=== PATIENT | female | born 1935 | race Two or more races ===

== ENCOUNTER 2017-02-15 20:55 | Observation (INO) ==
[2017-02-15] MEDS ORDERED: SODIUM CHLORIDE 0.9% 500 ML IV STA (21:19)
[2017-02-15 21:30] LABS: Basophils % 0.1 % (0.0-0.8); Eosinophils # 0.1 10*3/uL (0.0-0.87); Hematocrit 39.3 VOL% (35.7-47.0); Hemoglobin 13.6 GM/DL (12.0-16.0); Immature Granulocytes % 0.3 %; Immature Granulocytes Absolute 0.02 #; Lymphocytes # 2.7 10*3/uL (1.4-4.0); Lymphocytes % 39.6 % (21.3-54.2); Mean Corpuscular HGB Conc 34.6 GM/DL (32-36); Mean Corpuscular Hemoglobin 30 PG (27-34); Mean Corpuscular Volume 87.5 FL (87-102); Mean Platelet Volume 10.2 FL (9.6-12.0); Monocytes # 0.6 10*3/uL (0.11-0.8); Monocytes % 8.2 % (1.7-12.7); Neutrophils # 3.5 10*3/uL (1.4-7.4); Neutrophils % 50.8 % (38.7-73.9); Platelet Count 243 T/CUMM (130-400); Red Blood Count 4.49 MC/CUMM (3.8-5.5); White Blood Count 6.9 T/CUMM (4-12)
[2017-02-15 21:52] LABS: Alanine Aminotransferase 24 U/L (13-56); Albumin 3.6 G/DL (3.4-5.0); Alkaline Phosphatase 108 U/L (45-117); Aspartate Amino Transferase 17 U/L (0-37); Blood Urea Nitrogen 19 MG/DL (7-18); Calcium 9.3 MG/DL (8.5-10.1); Glucose 325 MG/DL (74-106); Magnesium 1.7 MG/DL (1.8-2.4); Sodium 136 MMOL/L (136-145); Total Protein 7.9 G/DL (6.4-8.3); Troponin I Only 0.025 NG/ML (0.00-0.045)
[2017-02-15 22:12] LABS: Ammonia 21 UMOL/L (11-32)
[2017-02-15 22:57] LABS: Apearance,Urine CLEAR (Clear); Bilirubin,Urine Negative (Negative); Blood, Urine Negative (Negative); Glucose,Urine (UA) >=500 mg/dL (Negative); Ketones,Urine Negative (Negative); Nitrite,Urine Negative (Negative); Protein,Urine Negative; RBC,Urine 2 /HPF (0-4); Squamous Epithelial Cell,Urine Occasional /HPF (0-10); Urine Color Straw (Yellow); Urine Specific Gravity 1.011 (1.001-1.035); Urine Urobilinogen < 2.0 EU/DL (0.2-1.0); WBC,Urine 4 /HPF (0-6)
[2017-02-15 23:01] LABS: Barbiturates Screen,Urine Negative (Negative); Benzodiazepines Screen,Urine Negative (Negative); Cannabinoid Screen,Urine Negative (Negative); Opiate Screen,Urine Negative (Negative); Phencyclidine Screen,Urine Negative (Negative)
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
[2017-02-16] MEDS ORDERED: ONDANSETRON 4 MG/2 ML VIAL IV PRN (00:47)
[2017-02-16] MEDS ORDERED: GLUCAGON 1 MG VIAL IM PRN (00:47)
[2017-02-16] MEDS ORDERED: DEXTROSE 50% 25 GM/50 ML SYRINGE IV PRN (00:47)
[2017-02-16] MEDS ORDERED: ACETAMINOPHEN 325 MG TABLET PO PRN (00:47)
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
[2017-02-16] MEDS: SODIUM CHLORIDE 0.9% 1,000 ML IV SCH ×3 (01:07→14:06)
[2017-02-16] MEDS: MAGNESIUM OXIDE 400 MG TABLET PO SCH ×3 (01:07→20:29)
[2017-02-16 06:03] LABS: Basophils % 0.4 % (0.0-0.8); Eosinophils # 0.1 10*3/uL (0.0-0.87); Eosinophils % 2.2 % (0.00-10.9); Hematocrit 35.5 VOL% (35.7-47.0); Hemoglobin 11.9 GM/DL (12.0-16.0); Immature Granulocytes % 0.4 %; Immature Granulocytes Absolute 0.02 #; Lymphocytes # 2.1 10*3/uL (1.4-4.0); Lymphocytes % 40.1 % (21.3-54.2); Mean Corpuscular HGB Conc 33.5 GM/DL (32-36); Mean Corpuscular Hemoglobin 30 PG (27-34); Mean Corpuscular Volume 88.1 FL (87-102); Monocytes # 0.6 10*3/uL (0.11-0.8); Monocytes % 10.8 % (1.7-12.7); Neutrophils # 2.4 10*3/uL (1.4-7.4); Neutrophils % 46.1 % (38.7-73.9); Platelet Count 211 T/CUMM (130-400); Red Blood Count 4.03 MC/CUMM (3.8-5.5); Red Cell Distribution Width 12.9 % (9.3-17.3); White Blood Count 5.1 T/CUMM (4-12)
--- NOTE | 2017-02-16 06:12 | CT Report ---
C CT of the head without contrast. Indication: Altered mental status. No prior studies. There is a preliminary report from [facility]. There is calcific plaque present within the intracranial internal carotid arteries. There has been a previous right frontotemporal craniotomy. The included paranasal sinuses and the mastoid air cells are clear. Deep to the craniotomy defect, there is a small area of encephalomalacia. Within the white matter of both cerebral hemispheres, there are areas of low density, consistent with chronic microvascular ischemia. There is no mass effect, midline shift, or area of hemorrhage. No definite cortical infarcts are seen. Impression: No acute intracranial process is identified. There are changes of chronic microvascular ischemia and encephalomalacia associated with the craniotomy defect in the right frontotemporal region. The CT exam was performed using one or more of the following dose reduction techniques: Automated exposure control, adjustment of the mA and/or kV according to patient size, or use of iterative reconstruction technique. PROCEDURE INTERPRETED AT [facility] [place] DEPARTMENT OF RADIOLOGY Final Report Signed by: Dr. Lola Morejon
[2017-02-16 06:37] LABS: Albumin 2.9 G/DL (3.4-5.0); Calcium 8.5 MG/DL (8.5-10.1); Magnesium 1.8 MG/DL (1.8-2.4); Osmolality,Calculated 290.1 MOS/KG (273-304); Total Protein 6.1 G/DL (6.4-8.3)
--- NOTE | 2017-02-16 07:06 | XRay Report ---
Single view the chest. Indication: Altered mental status. No comparison. The heart is normal in size. There is uncoiling of the thoracic aorta which often indicates chronic hypertension. There is calcific plaque present within the aortic knob. A left-sided Chemo-Port is in place with its distal tip at the junction of the right subclavian and SVC. The pulmonary vasculature is normal. There is no consolidation, pneumothorax, or pleural effusion. The osseous structures are diffusely demineralized. Degenerative changes are present within the spinal column and shoulders. Impression: No acute abnormality. PROCEDURE INTERPRETED AT [facility] DEPARTMENT OF RADIOLOGY Final Report Signed by: Dr. Lola Morejon
--- NOTE | 2017-02-16 08:12 | EKG Report ---
Stationary ECG Study [facility] ER Test Date: 02/15/2017 10:16:09 PM Pat Name: JAQUELINE GUZMAN Department: Room: 423 Gender: F Heating And Ventilating Drafter: : 1935 Requested by: Piyush Kaplan Order Number: [id number] Reading MD: ROBERT RUSH Intervals [place] Rate: 61 P: 60 IA: 170 QRS: 48 QRSD: 87 T: 54 QT: 489 QTc: 491 Interpretive Statements SINUS RHYTHM PROLONGED QT INTERVAL Electronically Signed On 02-16-17 12:07:40 CDT by ROBERT RUSH [email or web address]
[2017-02-16] MEDS: LOSARTAN 50 MG TABLET PO SCH (08:49)
[2017-02-16] MEDS: metFORMIN 500 MG TABLET PO SCH ×2 (08:49→20:29)
[2017-02-16] MEDS: sitaGLIPtin 100 MG TABLET PO SCH (08:49)
[2017-02-16] MEDS: INSULIN REGULAR 100 UNIT/ML SUBCUT SCH ×4 (08:49→20:31)
--- NOTE | 2017-02-16 14:55 | Hospitalist Progress Note ---
Assessment and Plan (1) Dementia arising in the senium and presenium Status: Acute Assessment and plan: Impression: 1. Dementia Plan: Await placement. Current Visit: Yes Hospitalist: Subjective Interval history: Follow-up dementia. The patient may be a placement issue. She was refused by her geriatric psychiatric unit because there is no one there that speaks Ecuadorean. When she was evaluated by [facility], she became distressed using the figure clerk on the telephone. The daughter is coming to see the patient this evening, and try to facilitate transfer to [facility]. If this can be done, we will have to discharge the patient home. Exam - Constitutional Vitals: Period Temp Pulse Resp BP Sys/Coyle Pulse Ox Last 24 Hr 96.6 F-100.1 F 59-97 16-20 111-199/59-92 94-97 Vital signs are noted above. Heart is regular with no murmur. Lungs are clear with no rales or wheezes. Abdomen is soft. I was not able to communicate with the patient other than to greet her. Results - Labs CBC & BMP: 02/16/17 05:36 02/16/17 05:36 Lab Results: I have reviewed the past 24 hour labs Quality Measures - VTE Contraindication to Pharmacological VTE Prophylaxis: Clinical assessment deems Pt at low risk, no prophalaxis needed
[2017-02-16] MEDS ORDERED: ATORVASTATIN 10 MG TABLET PO SCH (21:00)
[2017-02-17] MEDS: SODIUM CHLORIDE 0.9% 1,000 ML IV SCH (03:01)
--- NOTE | 2017-02-17 08:24 | Discharge Summary ---
Hospital Course - Hospital Course Hospital Course: Discharge diagnosis: 1. Dementia The patient presented to the hospital for evaluation of some mental status changes. She was evaluated by the geriatric psychiatric unit here at [place]. She was declined due to a language barrier. She was seen by [facility], and they decided that she was not psychotic, and did not need geriatric psychiatric hospitalization. Therefore, she is being discharged home. Medication reconciliation has been performed. Regular diet. Activity as tolerated. Follow-up with local physician. This note was completed using [employer] voice recognition software. There may be representative personal service errors as a result. Diagnosis - Discharge Diagnosis (1) Dementia arising in the senium and presenium Status: Acute Discharge Plan - Discharge Data Disposition: Disch To Home/Self Care Condition at Discharge: Stable Discharge Diet: advance to your usual diet Activity: resume usual activities as tolerated Hygiene: no restrictions Weight Bearing at Discharge: full weight bearing Driving: not until seen by doctor - Discharge Medications Continue Atorvastatin [Lipitor] 10 mg PO BEDTIME Sitagliptin Phos/Metformin HCl [Janumet 50-1,000 mg Tablet] 1 each PO BID Losartan [Cozaar] 100 mg PO DAILY - Follow Up or Referral - Forms/Instructions Exam - Constitutional Vitals: Period Temp Pulse Resp BP Sys/Coyle Pulse Ox Last 24 Hr 96.9 F-98.4 F 62-77 16-22 130-195/60-92 18-96 Vital signs are noted above. Heart is regular with no new murmur. Chest is clear. She is pleasant, but I cannot really communicate with her. Discharge Results Labs on day of discharge: Labs from last 24 hours 02/17/17 02/16/17 02/16/17 07:56 19:30 15:53 POC Glucose 229 H 140 H 160 H 02/16/17 12:28 POC Glucose 225 H DS: Provider Date of admission: 02/15/17 23:45 Primary care physician: . No PCP Attending physician on admission: Iker Leal MD Consults: 02/16/17 00:56 Consult to Case Mgmt/Social Srvs [CONS] Routine Reason for Case Mgmt/Social Srvs: Other Consult Comment: Geripsych placement Discharging clinician: Carlito Florentino MD Expected date of discharge: 02/17/17
[2017-02-17] MEDS: LOSARTAN 50 MG TABLET PO SCH (08:48)
[2017-02-17] MEDS: sitaGLIPtin 100 MG TABLET PO SCH (08:48)
[2017-02-17] MEDS: MAGNESIUM OXIDE 400 MG TABLET PO SCH (08:48)
[2017-02-17] MEDS: INSULIN REGULAR 100 UNIT/ML SUBCUT SCH ×2 (08:48→13:01)
[2017-02-17] MEDS: metFORMIN 500 MG TABLET PO SCH (08:48)
[2017-02-17 16:35] VITALS: BP 164/72
== END 2017-02-17 16:54 | disposition home or self-care (01) ==
LOC: N.ED 20:55 → N.EDINP 20:55 → SUATTDRO 23:45 → N.4E 02-16 00:26
PROVIDERS: ADMIT Family Medicine; ATTEND Internal Medicine Geriatric Medicine

== ENCOUNTER 2017-03-15 05:57 | Inpatient (IN) ==
--- NOTE | 2017-03-11 09:44 | XRay Report ---
XR chest 2V Indication: Respiratory preoperative evaluation Comparison: 15 February 2017 Findings: The heart and mediastinum are stable in size and configuration. Left subclavian Port-A-Cath is unchanged in position. The pulmonary vascularity is normal in caliber. Lung volumes are increased with prominent bronchial markings. No lung infiltrates, effusions, pneumothorax or other abnormality is demonstrated. Impression: Chronic lung changes. No acute process or significant change. PROCEDURE INTERPRETED AT [facility] DEPARTMENT OF RADIOLOGY Final Report Signed by: Dr. Nadir Roberts
--- NOTE | 2017-03-11 09:50 | EKG Report ---
Stationary ECG Study [facility] Test Date: 03/11/2017 9:51:09 AM Pat Name: JAQUELINE GUZMAN Department: Room: Gender: F Engagement Liaison: MARTIN MUNGUIA 03-15-17 : 1935 Requested by: Carlos Whitney Order Number: [id number] Ami MD: RYLEE GOMEZ Intervals [place] Rate: 69 P: 88 PA: 163 QRS: 63 QRSD: 97 T: 75 QT: 421 QTc: 440 Interpretive Statements SINUS RHYTHM Electronically Signed On 03-11-17 17:04:45 CDT by RYLEE GOMEZ [id number]
[2017-03-11 10:25] LABS: Basophils % 0.3 % (0.0-0.8); Eosinophils # 0.1 10*3/uL (0.0-0.87); Eosinophils % 1.7 % (0.00-10.9); Hematocrit 33.5 VOL% (35.7-47.0); Hemoglobin 11.3 GM/DL (12.0-16.0); Immature Granulocytes % 0.4 %; Immature Granulocytes Absolute 0.03 #; Lymphocytes # 1.6 10*3/uL (1.4-4.0); Lymphocytes % 22.7 % (21.3-54.2); Mean Corpuscular HGB Conc 33.7 GM/DL (32-36); Mean Corpuscular Hemoglobin 30 PG (27-34); Mean Corpuscular Volume 88.6 FL (87-102); Monocytes # 0.6 10*3/uL (0.11-0.8); Monocytes % 8.3 % (1.7-12.7); Neutrophils # 4.8 10*3/uL (1.4-7.4); Neutrophils % 66.6 % (38.7-73.9); Platelet Count 359 T/CUMM (130-400); Red Blood Count 3.78 MC/CUMM (3.8-5.5); Red Cell Distribution Width 12.9 % (9.3-17.3); White Blood Count 7.2 T/CUMM (4-12)
[2017-03-11 10:52] LABS: Apearance,Urine Slightly Hazy (Clear); Bilirubin,Urine Negative (Negative); Blood, Urine Negative (Negative); Glucose,Urine (UA) >=500 mg/dL (Negative); Ketones,Urine Negative (Negative); Mucus,Urine Occasional /LPF (Occasional); Nitrite,Urine Negative (Negative); Protein,Urine Negative; RBC,Urine 7 /HPF (0-4); Squamous Epithelial Cell,Urine Occasional /HPF (0-10); Urine Color Yellow (Yellow); Urine Specific Gravity 1.037 (1.001-1.035); WBC,Urine 16 /HPF (0-6)
[2017-03-11 11:00] LABS: Calcium 9.4 MG/DL (8.5-10.1); Osmolality,Calculated 292.7 MOS/KG (273-304)
--- NOTE | 2017-03-15 06:43 | History and Physical Update ---
History and Physical Update - History and Physical H&P was reviewed, the patient examined and there: are no changes in the patients condition since last H&P was completed.
[2017-03-15] MEDS ORDERED: INSULIN REGULAR 100 UNIT/ML SUBCUT ONE (06:46)
[2017-03-15] MEDS ORDERED: ceFAZolin 1,000 MG VIAL ONE (07:10)
[2017-03-15] MEDS ORDERED: SODIUM CHLORIDE 0.9% 100 ML IV ONE (07:10)
[2017-03-15] MEDS ORDERED: INSULIN REGULAR 100 UNIT/ML ONE (07:10)
[2017-03-15] MEDS ORDERED: LACTATED RINGERS 1,000 ML IV SCH ×2 (07:30→09:30)
[2017-03-15] MEDS ORDERED: GENTAMICIN 80 MG/2 ML VIAL ONE (08:42)
[2017-03-15] MEDS ORDERED: PROPOFOL 200 MG/20 ML VIAL IV ONE (09:15)
[2017-03-15] MEDS ORDERED: LIDOCAINE 2% 5 ML VIAL ONE (09:15)
[2017-03-15] MEDS ORDERED: LABETALOL 100 MG/20 ML VIAL IV ONE (09:15)
[2017-03-15] MEDS ORDERED: ONDANSETRON 4 MG/2 ML VIAL ONE (09:15)
[2017-03-15] MEDS ORDERED: MAGNESIUM HYDROXIDE SUSP 30 ML UDCUP PO PRN (09:29)
[2017-03-15] MEDS ORDERED: ACETAMINOPHEN 325 MG TABLET PO PRN (09:31)
[2017-03-15] MEDS ORDERED: oxyCODONE IR 5 MG TABLET PO PRN (09:31)
[2017-03-15] MEDS ORDERED: ONDANSETRON 4 MG/2 ML VIAL IV PRN (09:31)
[2017-03-15] MEDS ORDERED: MORPHINE 2 MG/1 ML SYRINGE IV PRN (09:31)
[2017-03-15] MEDS ORDERED: GLUCAGON 1 MG VIAL IM PRN (09:33)
[2017-03-15] MEDS ORDERED: DEXTROSE 50% 25 GM/50 ML SYRINGE IV PRN (09:33)
--- NOTE | 2017-03-15 10:38 | Operative Note ---
Date of procedure: 03/15/17 Procedure: DIAGNOSIS: Left displaced patella fracture PROCEDURE: Open reduction and fixation left displaced patella fracture SURGEON: Blaine ANESTHESIA: General with postoperative femoral nerve block PROCEDURE and FINDINGS: After adequate anesthesia was induced, her left lower extremities prepped and draped in usual sterile fashion. The limb was examined with Esmarch. Tourniquet was inflated 300 mmHg. Tourniquet was released at 12 minutes because of a venous tourniquet. Longitudinal anterior knee incision was made. Full-thickness flaps were elevated over the fracture. Organizing hematoma was removed. The patella was reduced and secured with a reduction forcep. 2 0.0625 K wires were introduced. An 18-gauge wire tension band was placed. Guide pins were cut and bent. An additional #2 Orthocord stitch was placed as a tension band. The knee was taken through range of motion and was stable to 90. 0 Vicryl lvainp-nl-thlvs sutures were used deep. Subcutaneous tissue was closed with 3-0 Vicryl interrupted, buried sutures. Skin was closed with a 4-0 Monocryl subcuticular stitch. Mastisol and Steri-Strips were applied. A sterile dressing and long leg cylinder splint was applied. Image intensification was used to multiple planes throughout the procedure. Surgeon / Physician: Carlos Valladares Jr. Results - Labs CBC & BMP: 03/11/17 10:18 03/11/17 10:18 Discharge Plan - Discharge Medications No Action Atorvastatin [Lipitor] 10 mg PO BEDTIME Sitagliptin Phos/Metformin HCl [Janumet 50-1,000 mg Tablet] 1 each PO BID Losartan [Cozaar] 100 mg PO DAILY - Follow Up or Referral - Forms/Instructions
[2017-03-15] MEDS ORDERED: ROPIVACAINE 0.5% 30 ML VIAL ONE (10:42)
[2017-03-15] MEDS ORDERED: fentaNYL 100 MCG/2 ML VIAL ONE (11:16)
[2017-03-15] MEDS ORDERED: SEVOFLURANE 1 UNIT/15 MINUTE INH ONE (11:16)
--- NOTE | 2017-03-15 11:46 | XRay Report ---
XR knee 2V LT Clinical Information: ORIF LT PATELLA Comparison: Prior radiographs 03/02/2017 Total fluoroscopy time 13.[address] Gonzalez Findings: Intraoperative fluoroscopic images demonstrate open reduction and internal fixation of the patellar fracture. Fracture fragments are in significantly improved position/alignment. Overlying soft tissue swelling is significantly decreased. Impression: Intraoperative fluoroscopy as detailed above. PROCEDURE INTERPRETED AT [facility] DEPARTMENT OF RADIOLOGY Final Report Signed by: Dave Preciado
[2017-03-15] MEDS: INSULIN LISPRO 100 UNIT/ML SUBCUT SCH ×3 (11:58→21:55)
[2017-03-15] MEDS: KETOROLAC 15 MG/1 ML VIAL IV SCH ×2 (11:58→17:36)
--- NOTE | 2017-03-15 12:55 | Anesthesia Post-Op ---
Anesthesia Post OP - Post Ansesthetic Evaluation Patient seen in post op: Yes Resp: within normal limits CV: within normal limits Mental: other (no change from preop) Temp: within normal limits Pxtv-Gm-[id number]: within normal limits Nausea and Vomiting: within normal limits Pain: within normal limits
[2017-03-15] MEDS: ACETAMINOPHEN 500 MG TABLET PO SCH ×2 (13:45→20:15)
--- NOTE | 2017-03-15 15:14 | Orthopedic Progress Note ---
Orthopedics - Subjective Interval history: No complaints postop. Splint is clean, dry and intact. Left lower extremity is neurovascularly unchanged. Plan: Continue with orders. Mrs Anand's daughter would like swing bed placement. Exam - Constitutional Vitals: Period Temp Pulse Resp BP Sys/Coyle Pulse Ox Last 24 Hr 97.5 F-97.5 F 63-86 18-20 150-219/71-98 94-100 Results - Labs CBC & BMP: 03/11/17 10:18 03/11/17 10:18
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
[2017-03-15] MEDS ORDERED: metFORMIN 500 MG TABLET PO SCH (21:00)
[2017-03-15] MEDS ORDERED: sitaGLIPtin 25 MG TABLET PO SCH (21:00)
[2017-03-15] MEDS: ATORVASTATIN 10 MG TABLET PO SCH (21:55)
[2017-03-15] MEDS: sitaGLIPtin 25 MG TABLET PO SCH (21:55)
[2017-03-15] MEDS: CIPROFLOXACIN 250 MG TABLET PO SCH (21:55)
[2017-03-15] MEDS: metFORMIN 500 MG TABLET PO SCH (21:55)
[2017-03-16] MEDS: KETOROLAC 15 MG/1 ML VIAL IV SCH (00:45)
[2017-03-16] MEDS ORDERED: KETOROLAC 30 MG/1 ML VIAL ONE (01:19)
[2017-03-16] MEDS: ACETAMINOPHEN 500 MG TABLET PO SCH ×2 (01:25→09:06)
[2017-03-16 04:02] LABS: Basophils % 0.2 % (0.0-0.8); Eosinophils # 0.1 10*3/uL (0.0-0.87); Eosinophils % 2.4 % (0.00-10.9); Hematocrit 27.7 VOL% (35.7-47.0); Hemoglobin 9.3 GM/DL (12.0-16.0); Immature Granulocytes % 0.3 %; Immature Granulocytes Absolute 0.02 #; Lymphocytes # 1.7 10*3/uL (1.4-4.0); Lymphocytes % 28.6 % (21.3-54.2); Mean Corpuscular HGB Conc 33.6 GM/DL (32-36); Mean Corpuscular Hemoglobin 30 PG (27-34); Mean Corpuscular Volume 89.9 FL (87-102); Mean Platelet Volume 10.1 FL (9.6-12.0); Monocytes # 0.5 10*3/uL (0.11-0.8); Monocytes % 8.9 % (1.7-12.7); Neutrophils # 3.5 10*3/uL (1.4-7.4); Neutrophils % 59.6 % (38.7-73.9); Platelet Count 263 T/CUMM (130-400); Red Blood Count 3.08 MC/CUMM (3.8-5.5); White Blood Count 5.9 T/CUMM (4-12)
[2017-03-16 04:33] LABS: Calcium 8.1 MG/DL (8.5-10.1); Osmolality,Calculated 288.8 MOS/KG (273-304); Potassium 3.7 MMOL/L (3.5-5.1)
[2017-03-16] MEDS: INSULIN LISPRO 100 UNIT/ML SUBCUT SCH ×4 (07:40→23:09)
--- NOTE | 2017-03-16 08:07 | Orthopedic Progress Note ---
Orthopedics - Subjective Interval history: Alert, comfortable. Her left knee only hurts her a little. Left lower extremity splint is clean, dry and intact. Her left lower extremity neurovascularly unchanged. Plan: Mobilize with physical therapy. Plan swing bed placement. Exam - Constitutional Vitals: Period Temp Pulse Resp BP Sys/Coyle Pulse Ox Last 24 Hr 97.1 F-98.5 F 58-86 15-20 117-219/52-98 93-100 Results - Labs CBC & BMP: 03/16/17 03:12 03/16/17 03:12
[2017-03-16] MEDS: CIPROFLOXACIN 250 MG TABLET PO SCH ×2 (09:06→22:19)
[2017-03-16] MEDS: LOSARTAN 50 MG TABLET PO SCH (09:06)
[2017-03-16] MEDS: metFORMIN 500 MG TABLET PO SCH ×2 (09:07→22:19)
[2017-03-16] MEDS: sitaGLIPtin 25 MG TABLET PO SCH ×2 (09:07→22:20)
[2017-03-16] MEDS: oxyCODONE IR 5 MG TABLET PO PRN ×2 (11:43→16:44)
--- NOTE | 2017-03-16 13:06 | Hospitalist Progress Note ---
Assessment and Plan - Time spent with patient Time spent with patient: Less than 30 minutes (1) Fall Status: Acute Assessment and plan: 81-year-old [place] African female admitted by Dr. Valladares on 03/15/2017 for ORIF of left patellar due to displaced fracture on 03/02/2017. Hospitalists have been consulted for medical management. Patient speaks very little Irish so communication is difficult. Patient has a history of diabetes, hypertension, and hyperlipidemia and her home medications have been restarted. She has also been placed on sliding scale insulin and we will monitor her blood pressures and blood sugars. Patient does have a recent admission for psychoses due to dementia so we will continue to monitor her mental status. She seems to be doing well today. Her pain is well controlled on IV and p.o. pain medication. Social work has been consulted for swing bed placement. We will continue to follow during her hospital stay. Dr. Zaidi will see and examine patient and further recommendations to follow. 03/16/2017 patient is doing well today status post left ORIF of her patella. She is afebrile vital signs are stable. Her H&H and blood sugars are all okay. Her pain is well controlled on current pain medications. She has been pleasant and has been doing her best to communicate with the nursing staff. Patient should be going to swing bed in the next day or so. Dr. Zaidi will see and examine patient and further recommendations to follow. Current Visit: Yes (2) Left patella fracture Status: Acute Current Visit: Yes (3) Diabetes Status: Acute Current Visit: Yes (4) Hypertension Status: Acute Current Visit: Yes (5) Hyperlipidemia Status: Acute Current Visit: Yes (6) History of encephalopathy Status: Acute Current Visit: Yes (7) History of craniotomy for brain mass Status: Acute Current Visit: Yes (8) Language barrier to communication Status: Acute Current Visit: Yes Hospitalist: Subjective Interval history: Patient is pleasant this morning and she has no complaints. She is having a little bit of pain in her left knee but the pain pills are managing this well. She is expected to go to swing bed in the next day or 2. Exam - Constitutional Vitals: Period Temp Pulse Resp BP Sys/Coyle Pulse Ox Last 24 Hr 97.1 F-98.5 F 58-79 17-19 117-159/52-82 93-100 Exam: 81-year-old [place] female, no acute distress, alert and oriented Constitutional System: No distress. No tremulousness. Head: Normocephalic, atraumatic. Ears, Nose and Throat System: No evidence of Otitis or Mastoiditis. No epistaxis or discharge Eyes System: Pupils equal, round, and reactive. Extraocular muscles intact. Neck: Supple, without adenopathy, No jugular venous distention. No thyromegaly, neck mass, or prior surgery apparent. Respiratory System: Chest clear to auscultation. Cardiovascular System: Heart with regular rate and rhythm. No murmur. GI System: Abdomen soft, nontender. Normo active bowel sounds present. Musculoskeletal System: limbs with no pedal edema. Full distal pulses. Left lower extremity dressing clean and dry Neurological System: No discernable sensory deficit. No aphasia Psychiatric System: Conversation is rational but difficult due to language barrier Results - Labs CBC & BMP: 03/16/17 03:12 03/16/17 03:12 Lab Results: I have reviewed the past 24 hour labs
[2017-03-16] MEDS: ATORVASTATIN 10 MG TABLET PO SCH (22:20)
--- NOTE | 2017-03-17 07:23 | Orthopedic Progress Note ---
Orthopedics - Subjective Interval history: Ms Anand has no complaints today. She is making progress with physical therapy. The caseworker protective services Ms. Petty is having problems contacting Ms. Anand' s daughter to set up a swing bed. Splint is clean and dry. Left lower extremity is neurovascularly unchanged. Plan: Continue physical therapy. Discharge planning. Exam - Constitutional Vitals: Period Temp Pulse Resp BP Sys/Coyle Pulse Ox Last 24 Hr 97.4 F-99.2 F 69-80 18-20 133-163/55-89 93-98 Results - Labs CBC & BMP: 03/16/17 03:12 03/16/17 03:12
[2017-03-17] MEDS: INSULIN LISPRO 100 UNIT/ML SUBCUT SCH ×4 (07:42→22:08)
[2017-03-17] MEDS ORDERED: PROMETHAZINE 25 MG/1 ML VIAL IM ONE (08:58)
[2017-03-17] MEDS: metFORMIN 500 MG TABLET PO SCH ×2 (12:13→21:05)
[2017-03-17] MEDS: LOSARTAN 50 MG TABLET PO SCH (12:13)
[2017-03-17] MEDS: CIPROFLOXACIN 250 MG TABLET PO SCH ×2 (12:13→21:06)
[2017-03-17] MEDS: sitaGLIPtin 25 MG TABLET PO SCH ×2 (12:13→21:05)
--- NOTE | 2017-03-17 13:24 | Hospitalist Progress Note ---
<Angelina Valdes - Last Filed: 03/17/17 13:21> Assessment and Plan - Time spent with patient Time spent with patient: Less than 30 minutes (1) Fall Status: Acute Assessment and plan: 81-year-old Slov[place] female admitted by Dr. Valladares on 03/15/2017 for ORIF of left patellar due to displaced fracture on 03/02/2017. Hospitalists have been consulted for medical management. Patient speaks very little Bengali so communication is difficult. Patient has a history of diabetes, hypertension, and hyperlipidemia and her home medications have been restarted. She has also been placed on sliding scale insulin and we will monitor her blood pressures and blood sugars. Patient does have a recent admission for psychoses due to dementia so we will continue to monitor her mental status. She seems to be doing well today. Her pain is well controlled on IV and p.o. pain medication. Social work has been consulted for swing bed placement. We will continue to follow during her hospital stay. Dr. Zaidi will see and examine patient and further recommendations to follow. 03/16/2017 patient is doing well today status post left ORIF of her patella. She is afebrile vital signs are stable. Her H&H and blood sugars are all okay. Her pain is well controlled on current pain medications. She has been pleasant and has been doing her best to communicate with the nursing staff. Patient should be going to swing bed in the next day or so. Dr. Zaidi will see and examine patient and further recommendations to follow. 03/17/2017 patient is doing well. She does have a little bit of nausea this morning and she received some Phenergan IM that has made her very sleepy. Will switch this to Zofran p.o. Since she will not allow further IV sticks. She is afebrile and her vital signs are stable. Her blood sugars are controlled. She is working with physical therapy and doing well. Hopefully transfer to swing bed in the morning. Social workers having trouble getting ahold of her daughter for transfer to swing bed but patient is alert and oriented and lucid enough I feel to give her own consent for swing bed. She does have a history of psychoses but seems to be perfectly fine now. Dr. Griffihts will see and examine patient and further recommendations to follow. Current Visit: Yes (2) Left patella fracture Status: Acute Current Visit: Yes (3) Diabetes Status: Acute Current Visit: Yes (4) Hypertension Status: Acute Current Visit: Yes (5) Hyperlipidemia Status: Acute Current Visit: Yes (6) History of encephalopathy Status: Acute Current Visit: Yes (7) History of craniotomy for brain mass Status: Acute Current Visit: Yes (8) Language barrier to communication Status: Acute Current Visit: Yes Hospitalist: Subjective Interval history: Patient is very sleepy this afternoon because she would not allow the nurses to stick her to receive Zofran. She was given Phenergan IM and is the cause of her sleepiness. Otherwise her pain is controlled. They are having issues getting a hold of her daughter for swing bed placement. She is okay to go today or tomorrow. Exam - Constitutional Vitals: Period Temp Pulse Resp BP Sys/Coyle Pulse Ox Last 24 Hr 97.7 F-99.2 F 133-163/55-89 93-98 Exam: 81-year-old [place] female, no acute distress, alert and oriented Constitutional System: No distress. No tremulousness. Head: Normocephalic, atraumatic. Ears, Nose and Throat System: No evidence of Otitis or Mastoiditis. No epistaxis or discharge Eyes System: Pupils equal, round, and reactive. Extraocular muscles intact. Neck: Supple, without adenopathy, No jugular venous distention. No thyromegaly, neck mass, or prior surgery apparent. Respiratory System: Chest clear to auscultation. Cardiovascular System: Heart with regular rate and rhythm. No murmur. GI System: Abdomen soft, nontender. Normo active bowel sounds present. Musculoskeletal System: limbs with no pedal edema. Full distal pulses. Left lower extremity dressing clean and dry Neurological System: No discernable sensory deficit. No aphasia Psychiatric System: Conversation is rational but difficult due to language barrier Results - Labs CBC & BMP: 03/16/17 03:12 03/16/17 03:12 Lab Results: I have reviewed the past 24 hour labs <Kamala Griffiths - Last Filed: 03/17/17 13:27> Exam - Constitutional Vitals: Period Temp Pulse Resp BP Sys/Coyle Pulse Ox Last 24 Hr 97.7 F-99.2 F 133-163/55-89 93-98 Results - Labs CBC & BMP: 03/16/17 03:12 03/16/17 03:12
[2017-03-17] MEDS: ATORVASTATIN 10 MG TABLET PO SCH (21:06)
--- NOTE | 2017-03-18 08:36 | Discharge Summary ---
Hospital Course - Hospital Course Hospital Course: Ms. Anand was admitted after undergoing an uncomplicated open reduction fixation of a left displaced patella fracture. She received perioperative antimicrobial prophylaxis. She received physical therapy. She was discharged to swing bed in stable condition. The hospitalist service was consulted to help manage her medical problems perioperatively. She was found to have a preoperative staph aureus urinary tract infection for which she was started on ciprofloxacin. Discharge Plan - Discharge Data Disposition: Disch/Xfer to Snf Condition at Discharge: Stable Discharge Diet: diabetic diet Activity: ambulate only with your walker Hygiene: keep area(s) dry Weight Bearing at Discharge: weight bear as tolerated (With walker protection) - Discharge Medications New HYDROcodone/ACETAMIN 5-325 [Reliance 5-325] 1 tablet PO Q4H PRN tablet PRN Reason: Pain Moderate (4-7) Insulin Lispro [HumaLOG] See Protocol SUBCUT ACHS unit metFORMIN [Glucophage] 1,000 mg PO BID tablet sitaGLIPtin [Januvia] 50 mg PO BID tablet Ciprofloxacin Tab [Cipro Tab] 250 mg PO Q12HR tablet Magnesium Hydroxide Susp [Milk of Magnesia] 30 ml PO Q6H PRN PRN Reason: Constipation Continue Atorvastatin [Lipitor] 10 mg PO BEDTIME Losartan [Cozaar] 100 mg PO DAILY Discontinued Sitagliptin Phos/Metformin HCl [Janumet 50-1,000 mg Tablet] 1 each PO BID - Follow Up or Referral - Forms/Instructions Additional Discharge Instructions: Follow-up appointment 3 weeks. Keep splint clean, dry and intact. Weightbearing as tolerated with walker on left lower extremity. Prescription for Reliance 5 was written. Exam - Constitutional Vitals: Period Temp Pulse Resp BP Sys/Coyle Pulse Ox Last 24 Hr 97.0 F-99.7 F 62-81 16-20 131-162/67-86 90-96 Discharge Results Labs on day of discharge: Labs from last 24 hours 03/18/17 03/17/17 03/17/17 06:54 20:43 16:40 POC Glucose 231 H 237 H 290 H Hemoglobin A1c 03/17/17 03/17/17 11:23 03:10 POC Glucose 225 H Hemoglobin A1c 12.1 H DS: Provider Date of admission: 03/15/17 09:30 Primary care physician: . No PCP Attending physician on admission: Carlos Valladares Jr., Consults: 03/15/17 09:29 Consult to Physical Therapy [CONS] Routine Reason for Physical Therapy: Evaluate and Treat Start Therapy: Today Consult Comment: Weightbearing as tolerated with walker protection 03/15/17 09:32 Consult to Case Mgmt/Social Srvs [CONS] Routine Reason for Case Mgmt/Social Srvs: Home Health Rehab Equipment Consult Comment: Swing bed placement Consult to Occupational Therapy [CONS] Routine Reason for Occupational Therapy: Evaluate and Treat Consult to Physician [CONS] Routine Comment: Perioperative medical nuclear waste management engineer Provider: Consulting Provider Notified: Yes When should Consulting Provider be notified: Now Consult to Specialist Group: Hospitalist When should Consulting Provider be notified: Now Person Notified: karma vieira called Date Notified: 03/15/17 Time Notified: 11:52 Discharging clinician: Carlos Valladares Jr., Expected date of discharge: 03/18/17
[2017-03-18] MEDS: INSULIN LISPRO 100 UNIT/ML SUBCUT SCH ×2 (09:04→11:56)
[2017-03-18] MEDS: CIPROFLOXACIN 250 MG TABLET PO SCH (09:06)
[2017-03-18] MEDS: metFORMIN 500 MG TABLET PO SCH (09:06)
[2017-03-18] MEDS: LOSARTAN 50 MG TABLET PO SCH (09:06)
[2017-03-18] MEDS: sitaGLIPtin 25 MG TABLET PO SCH (09:07)
--- NOTE | 2017-03-18 09:46 | Hospitalist Progress Note ---
Assessment and Plan - Time spent with patient Time spent with patient: Less than 30 minutes (1) Fall Status: Acute Assessment and plan: 81-year-old [place]ian female admitted by Dr. Valladares on 03/15/2017 for ORIF of left patellar due to displaced fracture on 03/02/2017. Hospitalists have been consulted for medical management. Patient speaks very little Persian so communication is difficult. Patient has a history of diabetes, hypertension, and hyperlipidemia and her home medications have been restarted. She has also been placed on sliding scale insulin and we will monitor her blood pressures and blood sugars. Patient does have a recent admission for psychoses due to dementia so we will continue to monitor her mental status. She seems to be doing well today. Her pain is well controlled on IV and p.o. pain medication. Social work has been consulted for swing bed placement. We will continue to follow during her hospital stay. Dr. Zaidi will see and examine patient and further recommendations to follow. 03/16/2017 patient is doing well today status post left ORIF of her patella. She is afebrile vital signs are stable. Her H&H and blood sugars are all okay. Her pain is well controlled on current pain medications. She has been pleasant and has been doing her best to communicate with the nursing staff. Patient should be going to swing bed in the next day or so. Dr. Zaidi will see and examine patient and further recommendations to follow. 03/17/2017 patient is doing well. She does have a little bit of nausea this morning and she received some Phenergan IM that has made her very sleepy. Will switch this to Zofran p.o. Since she will not allow further IV sticks. She is afebrile and her vital signs are stable. Her blood sugars are controlled. She is working with physical therapy and doing well. Hopefully transfer to swing bed in the morning. Social workers having trouble getting ahold of her daughter for transfer to swing bed but patient is alert and oriented and lucid enough I feel to give her own consent for swing bed. She does have a history of psychoses but seems to be perfectly fine now. Dr. Griffiths will see and examine patient and further recommendations to follow. 03/18/2017 patient is doing well and being transferred to swing bed this morning. She still looks a little sleepy and I think she still recovering from her Phenergan IM shot from yesterday. If she needs something for nausea I would recommend Zofran p.o. She has been afebrile and her vital signs are stable and her blood sugars are under good control. She had a UTI sensitive to Cipro. She will be discharged home on Cipro and pain medicine per Dr. Valladares. She will restart her home diabetes regimen and blood pressure medicine. Discussed with Dr. Griffiths. Current Visit: Yes (2) Left patella fracture Status: Acute Current Visit: Yes (3) Diabetes Status: Acute Current Visit: Yes (4) Hypertension Status: Acute Current Visit: Yes (5) Hyperlipidemia Status: Acute Current Visit: Yes (6) History of encephalopathy Status: Acute Current Visit: Yes (7) History of craniotomy for brain mass Status: Acute Current Visit: Yes (8) Language barrier to communication Status: Acute Current Visit: Yes Hospitalist: Subjective Interval history: Patient states she is doing okay and pain is controlled. She looks a little sleepy today. She is being transferred to [facility] today. Exam - Constitutional Vitals: Period Temp Pulse Resp BP Sys/Coyle Pulse Ox Last 24 Hr 97.0 F-99.7 F 62-81 16-20 131-162/67-86 90-96 Exam: 81-year-old [place]ian female, no acute distress, alert and oriented Constitutional System: No distress. No tremulousness. Head: Normocephalic, atraumatic. Ears, Nose and Throat System: No evidence of Otitis or Mastoiditis. No epistaxis or discharge Eyes System: Pupils equal, round, and reactive. Extraocular muscles intact. Neck: Supple, without adenopathy, No jugular venous distention. No thyromegaly, neck mass, or prior surgery apparent. Respiratory System: Chest clear to auscultation. Cardiovascular System: Heart with regular rate and rhythm. No murmur. GI System: Abdomen soft, nontender. Normo active bowel sounds present. Musculoskeletal System: limbs with no pedal edema. Full distal pulses. Left lower extremity dressing clean and dry Neurological System: No discernable sensory deficit. No aphasia Psychiatric System: Conversation is rational but difficult due to language barrier Results - Labs CBC & BMP: 03/16/17 03:12 03/16/17 03:12 Lab Results: I have reviewed the past 24 hour labs Specialty Discharge - Follow Up or Referrals Follow up with: Carlos Valladares Jr., MD [Physician] - 04/06/17 1:20 pm (3 weeks)
[2017-03-18 10:58] VITALS: BP 160/75
== END 2017-03-18 12:00 | disposition swing bed (61) | DRG 516 ==
LOC: N.SDSINP 05:57 → N.OR 05:57 → N.3E 09:30
PROVIDERS: ADMIT Orthopaedic Surgery; ATTEND Orthopaedic Surgery

== ENCOUNTER 2018-01-25 19:10 | Observation (INO) ==
[2018-01-25] MEDS ORDERED: SODIUM CHLORIDE 0.9% 1,000 ML IV STA (19:29)
[2018-01-25 20:41] LABS: Basophils % 0.2 % (0.0-0.8); Eosinophils # 0.2 10*3/uL (0.0-0.87); Hematocrit 28.7 VOL% (35.7-47.0); Hemoglobin 8.7 GM/DL (12.0-16.0); Immature Granulocytes % 0.4 %; Immature Granulocytes Absolute 0.03 #; Lymphocytes # 1.7 10*3/uL (1.4-4.0); Lymphocytes % 20.5 % (21.3-54.2); Mean Corpuscular HGB Conc 30.3 GM/DL (32-36); Mean Corpuscular Hemoglobin 24 PG (27-34); Mean Corpuscular Volume 78.6 FL (87-102); Mean Platelet Volume 10.1 FL (9.6-12.0); Monocytes # 0.7 10*3/uL (0.11-0.8); Monocytes % 8.3 % (1.7-12.7); Neutrophils # 5.5 10*3/uL (1.4-7.4); Neutrophils % 68.6 % (38.7-73.9); Platelet Count 374 T/CUMM (130-400); Red Blood Count 3.65 MC/CUMM (3.8-5.5); Red Cell Distribution Width 14.7 % (9.3-17.3); White Blood Count 8.1 T/CUMM (4-12)
[2018-01-25 20:50] LABS: Ammonia 18 UMOL/L (11-32)
[2018-01-25 20:51] LABS: PT Patient Result 10.1 SECS
[2018-01-25 21:01] LABS: Apearance,Urine CLEAR (Clear); Bilirubin,Urine Negative (Negative); Blood, Urine Small mg/dL (Negative); Glucose,Urine (UA) >=500 mg/dL (Negative); Ketones,Urine Negative (Negative); Nitrite,Urine Negative (Negative); Protein,Urine Negative; RBC,Urine 1 /HPF (0-4); Urine Color Yellow (Yellow); Urine Specific Gravity 1.011 (1.001-1.035); Urine Urobilinogen < 2.0 EU/DL (0.2-1.0)
[2018-01-25 21:02] LABS: Alanine Aminotransferase 15 U/L (13-56); Alkaline Phosphatase 121 U/L (45-117); Aspartate Amino Transferase 11 U/L (0-37); Blood Urea Nitrogen 15 MG/DL (7-18); Calcium 8.9 MG/DL (8.5-10.1); Glucose 303 MG/DL (74-106); Osmolality,Calculated 290.4 MOS/KG (273-304); Potassium 3.6 MMOL/L (3.5-5.1); Sodium 140 MMOL/L (136-145); Total Protein 7.6 G/DL (6.4-8.3)
[2018-01-25 21:11] LABS: Barbiturates Screen,Urine Negative (Negative); Benzodiazepines Screen,Urine Negative (Negative); Cannabinoid Screen,Urine Negative (Negative); Opiate Screen,Urine Negative (Negative); Phencyclidine Screen,Urine Negative (Negative)
[2018-01-25] MEDS ORDERED: MAGNESIUM SULF RIDER 2 GM in PREMIX 1 EACH IV STA (21:12)
[2018-01-25] MEDS ORDERED: INSULIN REGULAR 100 UNIT/ML SUBCUT STA (21:13)
[2018-01-25] MEDS ORDERED: ACETAMINOPHEN 325 MG TABLET PO PRN (23:16)
[2018-01-25] MEDS ORDERED: DEXTROSE 50% 25 GM/50 ML VIAL IV PRN ×2 (23:16)
[2018-01-25] MEDS ORDERED: GLUCAGON 1 MG VIAL IM PRN ×2 (23:16)
[2018-01-26] MEDS: INSULIN REGULAR 100 UNIT/ML SUBCUT SCH ×3 (03:56→11:55)
[2018-01-26 07:00] LABS: Basophils % 0.2 % (0.0-0.8); Eosinophils # 0.2 10*3/uL (0.0-0.87); Eosinophils % 2.8 % (0.00-10.9); Hematocrit 24.9 VOL% (35.7-47.0); Hemoglobin 7.6 GM/DL (12.0-16.0); Immature Granulocytes % 0.2 %; Immature Granulocytes Absolute 0.01 #; Lymphocytes # 1.7 10*3/uL (1.4-4.0); Lymphocytes % 30.1 % (21.3-54.2); Mean Corpuscular HGB Conc 30.5 GM/DL (32-36); Mean Corpuscular Hemoglobin 23 PG (27-34); Mean Corpuscular Volume 76.6 FL (87-102); Monocytes # 0.5 10*3/uL (0.11-0.8); Monocytes % 9.3 % (1.7-12.7); Neutrophils # 3.3 10*3/uL (1.4-7.4); Neutrophils % 57.4 % (38.7-73.9); Platelet Count 348 T/CUMM (130-400); Red Blood Count 3.25 MC/CUMM (3.8-5.5); Red Cell Distribution Width 14.7 % (9.3-17.3); White Blood Count 5.7 T/CUMM (4-12)
[2018-01-26 07:22] LABS: Albumin 2.5 G/DL (3.4-5.0); Bilirubin,Total 0.5 MG/DL (0.2-1.0); Calcium 8.1 MG/DL (8.5-10.1); Osmolality,Calculated 290.8 MOS/KG (273-304); Potassium 3.6 MMOL/L (3.5-5.1); Total Protein 6.3 G/DL (6.4-8.3)
[2018-01-26] MEDS ORDERED: MAGNESIUM SULF INJ 3 GM in SODIUM CHLORIDE 0.9% 100 ML IV ONE (07:53)
[2018-01-26] MEDS ORDERED: CALCIUM GLUCONATE 2,000 MG in SODIUM CHLORIDE 0.9% 100 ML IV ONE (07:54)
[2018-01-26] MEDS ORDERED: PANTOPRAZOLE 40 MG TABLET PO SCH (09:00)
[2018-01-26] MEDS ORDERED: ENOXAPARIN 40 MG/0.4 ML SYRINGE SUBCUT SCH (09:00)
[2018-01-26] MEDS ORDERED: LOSARTAN 50 MG TABLET PO SCH (09:00)
[2018-01-26 11:22] VITALS: BP 142/66
[2018-01-26 14:06] LABS: Hemoglobin 8.5 GM/DL (12.0-16.0)
== END 2018-01-26 15:50 ==
LOC: N.ED 19:10 → N.EDINP 19:10 → N.5E 23:54